=== PATIENT | female | born 1995 | race African-American/Black ===

== ENCOUNTER 2018-06-11 00:53 | Observation (INO) | payer MEDICAID, OTHER ==
[~2018-06-11] VITALS: Ht 165.1 cm; Wt 67.1 kg
[~2018-06-11 00:53] MED LIST: PREN1TAB78 MT
[2018-06-11 02:59] LABS: CLARITY URINE CLEAR (CLEAR); COLOR URINE YELLOW (YELLOW); KETONES URINE NEGATIVE (NEGATIVE); LEUKOCYTE ESTERASE URINE 2+ (NEGATIVE); NITRITE URINE NEGATIVE (NEGATIVE); OCCULT BLOOD URINE NEGATIVE (NEGATIVE); PROTEIN URINE NEGATIVE (NEGATIVE); SPECIFIC GRAVITY URINE 1.013 (1.005-1.030); UROBILINOGEN URINE 0.2 E.U./dL (0.2-1.0)
== END 2018-06-11 04:08 | disposition home or self-care (01) ==
LOC: L&D 00:53
PROVIDERS: ADMIT Obstetrics & Gynecology; ATTEND Obstetrics & Gynecology
DX: O62.9 Abnormality of forces of labor, unspecified (principal); Z3A.39 39 weeks gestation of pregnancy
CPT/HCPCS: 81003; 99281; G0378

== ENCOUNTER 2018-06-11 17:48 | Inpatient (IN) | payer OTHER, MEDICAID ==
[~2018-06-11] VITALS: Ht 165.1 cm; Wt 67.1 kg
[2018-06-11] MEDS ORDERED: DEXT 5%/LR + PITOCIN 20UNITS/L 1,000 ML IV SCH ×2 (18:19→23:14)
[2018-06-11] MEDS ORDERED: LACTATED RINGERS 1,000 ML IV SCH (18:19)
[2018-06-11] MEDS ORDERED: MISOPROSTOL 100MCG TABLET VG SCH (18:30)
[2018-06-11] MEDS ORDERED: NALOXONE HCL 0.4 MG/ML 1ML VIAL IM PRN (18:30)
[2018-06-11] MEDS ORDERED: PENICILLIN G POTASSIUM 5 MMU in DEXT 5% WATER 100 ML IV NR (18:30)
[2018-06-11] MEDS ORDERED: CARBOPROST TROMETHAMINE 250 MCG/ML AMPUL IM PRN (18:30)
[2018-06-11] MEDS ORDERED: METHYLERGONOVINE MALEATE 0.2 MG/ML IM PRN ×2 (18:30→23:15)
[2018-06-11] MEDS ORDERED: LIDOCAINE HCL 1% 20ML VIAL (Pyxis) INJ INFIL SCH (18:30)
[2018-06-11] MEDS ORDERED: BUTORPHANOL TARTRATE 2 MG/ML VIAL IV PRN (18:30)
[2018-06-11 19:25] LABS: BASOPHILS % 0.1 % (0.0-2.0); EOSINOPHILS % 0.2 % (0.0-5.0); HEMATOCRIT. 36.8 % (36.0-48.0); HEMOGLOBIN. 12.2 g/dL (12.0-16.0); LYMPHOCYTES % 12.8 % (20.0-50.0); MEAN CORPUSCULAR VOLUME 75.5 fL (81.0-99.0); MEAN PLATELET VOLUME 10.2 fl (7.4-10.4); MONOCYTES % 7.8 % (2.0-8.0); NEUTROPHILS % 79.1 % (40.0-76.0); PLATELET 270 x1000/uL (130-400); RED BLOOD CELL COUNT 4.87 mill/uL (4.2-5.4); RED CELL DISTRIBUTION WIDTH 13.9 % (11.6-14.6)
[2018-06-11 19:34] LABS: PARTIAL THROMBOPLASTIN TIME 26.7 sec (23.4-31.0)
[2018-06-11 20:07] LABS: HEPATITIS B SURFACE ANTIGEN NEGATIVE
[2018-06-11] MEDS ORDERED: PENICILLIN G POTASSIUM 2.5 MMU in DEXTROSE 5% WATER 50 ML IV SCH (23:00)
[2018-06-11] MEDS ORDERED: OXYCODONE HCL/ACETAMINOPHEN 5/325MG TABLET PO PRN (23:15)
[2018-06-11] MEDS ORDERED: RHO(D) IMMUNE GLOBULIN 300 MCG/SYR IM PRN (23:15)
[2018-06-11] MEDS ORDERED: LANOLIN OINT 0.25 GM TUBE TOP PRN (23:15)
[2018-06-11] MEDS ORDERED: IBUPROFEN 400MG TABLET PO PRN (23:15)
[2018-06-11 23:30] VITALS: BP 91/58
[2018-06-12] VITALS: BP 101/59
[2018-06-12] MEDS: BENZOCAINE/LANOLIN/ALOE VERA SPRAY TOP PRN (00:59)
[2018-06-12 05:06] VITALS: BP 99/61
[2018-06-12 08:00] VITALS: BP 95/55
[2018-06-12] MEDS: PRENATAL VIT/FE FUMARATE/FA TABLET PO SCH (09:00)
[2018-06-12] MEDS: IBUPROFEN 800MG TABLET PO PRN ×2 (10:03→19:52)
[2018-06-12 12:46] LABS: BASOPHILS % 0.2 % (0.0-2.0); EOSINOPHILS % 0.6 % (0.0-5.0); HEMATOCRIT. 30.4 % (36.0-48.0); HEMOGLOBIN. 10.1 g/dL (12.0-16.0); LYMPHOCYTES % 17.9 % (20.0-50.0); MEAN CORPUSCULAR HEMOGLOBIN 25.2 pg (28.0-32.0); MEAN CORPUSCULAR VOLUME 75.6 fL (81.0-99.0); MEAN PLATELET VOLUME 9.9 fl (7.4-10.4); MONOCYTES % 9.5 % (2.0-8.0); NEUTROPHILS % 71.8 % (40.0-76.0); PLATELET 202 x1000/uL (130-400); RED BLOOD CELL COUNT 4.02 mill/uL (4.2-5.4); RED CELL DISTRIBUTION WIDTH 13.9 % (11.6-14.6)
[2018-06-12 16:00] VITALS: BP 105/58
[2018-06-12 20:00] VITALS: BP 90/56
[2018-06-12] MEDS ORDERED: DOCUSATE SODIUM 100MG CAPSULE PO SCH (21:00)
[2018-06-13 05:00] VITALS: BP 98/58
[2018-06-13] MEDS: PRENATAL VIT/FE FUMARATE/FA TABLET PO SCH (09:25)
[2018-06-13] MEDS: BENZOCAINE/LANOLIN/ALOE VERA SPRAY TOP PRN (09:25)
[2018-06-13] MEDS: IBUPROFEN 800MG TABLET PO PRN (09:26)
== END 2018-06-13 11:10 | disposition home or self-care (01) | DRG 560 ==
LOC: L&D 17:48 → OBSVTOIN 17:48 → 7EST PP/OB 06-12 00:06
PROVIDERS: ADMIT Obstetrics & Gynecology; ATTEND Obstetrics & Gynecology
PROC: 0W8NXZZ Division of Female Perineum, External Approach (ICD-10-PCS; 2018-06-11)
PROC: 10E0XZZ Delivery of Products of Conception, External Approach (ICD-10-PCS; principal; 2018-06-11 21:00)
DX: O80 Encounter for full-term uncomplicated delivery (principal); Z37.0 Single live birth; Z3A.00 Weeks of gestation of pregnancy not specified
CPT/HCPCS: 36415; 86592; 86703; 86762; 86850; 86900; 87340; 99281; J0595; J2540; J2590; J3490; J7060

== ENCOUNTER 2021-05-31 06:42 | Observation (INO) | payer MEDICAID ==
[~2021-05-31] VITALS: Ht 165.1 cm; Wt 61.7 kg
[2021-05-31 08:22] LABS: CLARITY URINE CLEAR (CLEAR); COLOR URINE YELLOW (YELLOW); KETONES URINE TRACE (NEGATIVE); LEUKOCYTE ESTERASE URINE 2+ (NEGATIVE); NITRITE URINE NEGATIVE (NEGATIVE); OCCULT BLOOD URINE NEGATIVE (NEGATIVE); PROTEIN URINE NEGATIVE (NEGATIVE); SPECIFIC GRAVITY URINE 1.011 (1.005-1.030)
[2021-05-31] MEDS ORDERED: LACTATED RINGERS 1,000 ML IV SCH (09:00)
[2021-05-31] MEDS ORDERED: CEFAZOLIN 1000MG PREMIX 50 ML IV NR (10:00)
== END 2021-05-31 10:15 | disposition home or self-care (01) ==
LOC: 8 EST LDRP 06:42
PROVIDERS: ADMIT Obstetrics & Gynecology; ATTEND Obstetrics & Gynecology
DX: O46.92 Antepartum hemorrhage, unspecified, second trimester (principal); Z3A.25 25 weeks gestation of pregnancy
CPT/HCPCS: 59025; 76805; 81003; 96365; G0378; J0690; 96360; 99281; J7120; G0379

== ENCOUNTER 2021-06-12 06:48 | Observation (INO) | payer MEDICAID ==
[~2021-06-12] VITALS: Ht 165.1 cm; Wt 61.7 kg
[2021-06-12 08:37] LABS: CLARITY URINE CLEAR (CLEAR); COLOR URINE YELLOW (YELLOW); KETONES URINE NEGATIVE (NEGATIVE); LEUKOCYTE ESTERASE URINE TRACE (NEGATIVE); NITRITE URINE NEGATIVE (NEGATIVE); OCCULT BLOOD URINE NEGATIVE (NEGATIVE); PH URINE 6.5 (4.5-8.0); PROTEIN URINE NEGATIVE (NEGATIVE); SPECIFIC GRAVITY URINE 1.012 (1.005-1.030); UROBILINOGEN URINE 0.2 E.U./dL (0.2-1.0)
== END 2021-06-12 11:15 | disposition home or self-care (01) ==
LOC: 8 EST LDRP 06:48
PROVIDERS: ADMIT Obstetrics & Gynecology; ATTEND Obstetrics & Gynecology
DX: O26.852 Spotting complicating pregnancy, second trimester (principal); O62.9 Abnormality of forces of labor, unspecified; Z3A.27 27 weeks gestation of pregnancy
CPT/HCPCS: 59025; 76805; 76817; 81003; 87070; G0378; 99281

== ENCOUNTER 2021-08-20 23:44 | Observation (INO) | payer MEDICAID ==
[~2021-08-20] VITALS: Ht 163.8 cm; Wt 64.9 kg
== END 2021-08-21 02:30 | disposition home or self-care (01) ==
LOC: L&D 23:44 → 8 EST LDRP 08-21 00:03
PROVIDERS: ADMIT Obstetrics & Gynecology Obstetrics; ATTEND Obstetrics & Gynecology
DX: O62.9 Abnormality of forces of labor, unspecified (principal); O26.893 Other specified pregnancy related conditions, third trimester; R10.9 Unspecified abdominal pain; O99.891 Other specified diseases and conditions complicating pregnancy; M54.9 Dorsalgia, unspecified; Z79.899 Other long term (current) drug therapy; Z3A.37 37 weeks gestation of pregnancy
CPT/HCPCS: 76815; 76818; 99281; G0378; 59025

== ENCOUNTER 2021-08-22 11:55 | Observation (INO) | payer MEDICAID ==
[~2021-08-22] VITALS: Ht 163.8 cm; Wt 64.9 kg
== END 2021-08-22 14:30 | disposition home or self-care (01) ==
LOC: 8 EST LDRP 11:55
PROVIDERS: ADMIT Obstetrics & Gynecology; ATTEND Obstetrics & Gynecology
DX: O62.9 Abnormality of forces of labor, unspecified (principal); O26.893 Other specified pregnancy related conditions, third trimester; R10.9 Unspecified abdominal pain; Z3A.38 38 weeks gestation of pregnancy
CPT/HCPCS: 59025; G0378; 99281